=== PATIENT | female | born 1985 | race Caucasian/White ===

== ENCOUNTER 2025-01-10 18:05 | Emergency (ER) | payer SELFPAY ==
[2025-01-10 18:09] VITALS: BP 169/88; PULSE 77; TEMP 37.2; O2SAT 100; BMI 27.4
--- NOTE | 2025-01-10 18:28 | ED.GENADUL1 ---
HPI HPI - General Adult General Chief complaint: Abdominal Pain Stated complaint: ABDOMINAL PAIN Time Seen by Provider: 01/10/25 18:06 Source: patient Mode of arrival: walk-in Limitations: no limitations History of Present Illness HPI narrative: Patient is a 39-year-old female who presents to the emergency department for evaluation of right lower quadrant abdominal pain that has been present for the last 3 weeks. She states she sometimes feels the pain in the right flank and back. She states today the pain has been much more constant and increasing in intensity. She is tearful at initial interview. She has had nausea but no vomiting or diarrhea. No hematuria or dysuria. She has had a previous Essure procedure but no other abdominal surgeries. She denies the symptoms previously. Related Data Home Medications ?Medication ?Instructions ?Recorded ?Confirmed No Known Home Medications 01/10/25 01/10/25 Previous Rx's ?Medication ?Instructions ?Recorded dicyclomine 20 mg tablet 20 mg PO QID PRN abdominal pain 01/10/25 #12 tabs hydrocodone 5 mg-acetaminophen 325 1 tab PO Q6H PRN pain 3 days #12 01/10/25 mg tablet tabs ketorolac 10 mg tablet 10 mg PO TID PRN pain #10 tabs 01/10/25 ondansetron 4 mg disintegrating 4 mg PO Q6H PRN nausea and 01/10/25 tablet vomiting #12 tabs Allergies Allergy/AdvReac Type Severity Reaction Status Date / Time No Known Drug Allergies Allergy Verified 01/10/25 18:09 Opioid HPI Opioid Management Most Recent Opioid Data: Last Pain Scale 5 01/10/25 20:58 01/10/25 Last ED Pain Assessment 01/10/25 20:58 Review of Systems ROS Constitutional Denies: fever or chills Ears, nose, mouth, and throat Denies: throat pain or nasal congestion Respiratory Denies: shortness of breath Gastrointestinal Reports: abdominal pain; Denies: nausea, vomiting or diarrhea Musculoskeletal Reports: back pain; Denies: neck pain Integumentary/Breast Denies: rash Neurological Denies: numbness in extremities or weakness in extremities Hematologic/Lymphatic Denies: easy bruising or easy bleeding PFSH PFSH Social History Little interest or pleasure in doing things: not at all Feeling down, depressed, or hopeless: not at all Exam Narrative Exam Narrative: Gen.: Awake, alert, in no distress Head: Normocephalic, atraumatic ENT: Moist mucous membranes Respiratory: No respiratory distress Gastrointestinal: Abdomen is soft, nondistended and mildly tender to palpation in the right lower quadrant with no guarding or rebound, no CVA tenderness Extremities: Moves extremities equally Psych: Normal mood and affect Neuro: No focal neuro deficit Skin: Warm, dry, intact Constitutional Vital Signs, click to edit/add: Last Vital Signs Temp 99 F 01/10/25 18:09 Pulse 64 01/10/25 20:30 Resp 18 01/10/25 20:30 BP 132/82 01/10/25 20:30 Pulse Ox 99 01/10/25 20:30 O2 Del Method Room Air 01/10/25 20:30 Course Vital Signs Vital signs: Vital Signs Temperature 99 F 01/10/25 18:09 Pulse Rate 77 01/10/25 18:09 Respiratory Rate 20 01/10/25 18:09 Blood Pressure 169/88 H 01/10/25 18:09 Pulse Oximetry 100 01/10/25 18:09 Oxygen Delivery Method Room Air 01/10/25 18:09 Temperature 99 F 01/10/25 18:09 Pulse Rate 64 01/10/25 20:30 Respiratory Rate 18 01/10/25 20:30 Blood Pressure 132/82 01/10/25 20:30 Pulse Oximetry 99 01/10/25 20:30 Oxygen Delivery Method Room Air 01/10/25 20:30 Medical Decision Making [facility] Narrative Medical decision making narrative: Was medicated with pain medication, laboratory studies reviewed and noted showing leukocytosis but no other acute abnormalities noted with normal lactic acid and urine specimen. test is negative. CT of the abdomen and pelvis shows the patient has gallstones but no evidence of cholecystitis, appendix is normal and well-seen. There is no evidence of ureteral stone. Bladder is mildly distended and the patient was noted to have an enlarged uterus with fibroids. Vital signs are within normal limits and she is resting comfortably on reevaluation. She is started on a short course of analgesics, Levsin, Toradol, Zofran. Follow-up with PCP and return to the ER if symptoms change or worsen SUPERVISED APC VISIT, PHYSICIAN ATTESTATION: Based on the medical record the care appears appropriate. ? Medical Records Medical records reviewed: Yes I reviewed the patient's medical records Lab Data Lab results reviewed: Yes I reviewed the patient's lab results Labs: Lab Results 01/10/25 01/10/25 Range/Units 18:21 18:29 WBC 16.0 H (4.0-11.0) 10^3/uL RBC 4.80 (4.20-5.40) 10^6/uL Hgb 14.7 (12.0-16.0) g/dL Hct 42.6 (36.0-48.0) % MCV 88.8 (81.0-99.0) fL MCH 30.6 (26.7-34.0) pg MCHC 34.5 (29.9-35.2) g/dL RDW 12.3 (11.0-15.0) % Plt Count 278 (150-450) 10^3/uL MPV 10.6 (9.5-13.5) fL Neut % (Auto) 73.4 (43.0-75.0) % Lymph % (Auto) 17.7 L (20.5-60.0) % [place] % (Auto) 7.2 (1.7-12.0) % Eos % (Auto) 0.8 L (0.9-7.0) % Baso % (Auto) 0.5 (0.2-2.0) % Neut # (Auto) 11.7 H (1.4-6.5) 10^3/uL Lymph # (Auto) 2.8 (1.2-3.8) 10^3/uL [place] # (Auto) 1.2 H (0.3-0.8) 10^3/uL Eos # (Auto) 0.1 (0.0-0.7) 10^3/uL Baso # (Auto) 0.1 (0.0-0.1) 10^3/uL Abs Immat Gran (auto) 0.06 H (0.00-0.03) 10^3/uL Imm/Tot Granulo (auto) 0.4 (0.0-0.5) % PT 10.6 (9.0-11.6) sec INR 1.00 Sodium 141 (136-145) mmol/L Potassium 3.3 L (3.5-5.1) mmol/L Chloride 105 (98-107) mmol/L Carbon Dioxide 25.6 (21.0-32.0) mmol/L Anion Gap 13.7 BUN 7.0 (7.0-18.0) mg/dL Creatinine 0.72 (0.55-1.02) mg/dL Est GFR ( Amer) >60 (>=60 mL/min/1.73m^2) Est GFR (Non-Af Amer) >60 (>=60 mL/min/1.73m^2) BUN/Creatinine Ratio 9.7 Glucose 102 (74-106) mg/dL Lactate 1.8 (0.4-2.0) mmol/L Calcium 9.2 (8.5-10.1) mg/dL Total Bilirubin 0.7 (0.2-1.0) mg/dL AST 28 (15-37) U/L ALT 37 (14-59) U/L Alkaline Phosphatase 61 (46-116) U/L Total Protein 7.4 (6.4-8.2) g/dL Albumin 3.8 (3.4-5.0) g/dL Globulin 3.6 g/dL Albumin/Globulin Ratio 1.1 Lipase 24.0 (16.0-77.0) U/L Serum HCG, Qual Negative (NEGATIVE) Urine Color Lt. yellow (YELLOW) Urine Clarity Clear (CLEAR) Urine pH 6.0 (5.0-9.0) Ur Specific [place] <=1.005 A (1.005-1.025) Urine Protein Negative (NEG/TRACE) mg/dL Urine Glucose (UA) Negative (NEGATIVE) mg/dL Urine Ketones Negative (NEGATIVE) mg/dL Urine Occult Blood Negative (NEGATIVE) Urine Nitrite Negative (NEGATIVE) Urine Bilirubin Negative (NEGATIVE) Urine Urobilinogen 0.2 (0.2-1.0) EU/dL Ur Leukocyte Esterase Negative (NEGATIVE) Urine RBC None seen (0-2) #/HPF Urine WBC None seen (NONE SEEN) #/HPF Ur Squamous Epith Cells Rare (NONE/RARE) #/LPF Urine Crystals None seen (None Seen) #/HPF Urine Bacteria None seen (NONE SEEN) #/HPF Urine Casts None seen (NONE SEEN) #/LPF Urine Mucus None seen (NONE SEEN) Ur Culture Indicated? No Imaging Data CT scan - abdomen: Attestation: I have reviewed the pertinent imaging results. Discharge Plan Discharge Chief Complaint: Abdominal Pain Clinical Impression: Abdominal pain Patient Disposition: Home, Self-Care Time of Disposition Decision: 21:32 Condition: Good Prescriptions / Home Meds: New hydrocodone-acetaminophen 5-325 mg tablet 1 tab PO Q6H PRN (Reason: pain) 3 Days Qty: 12 0RF Rx Instructions: DX: R10.9 dicyclomine 20 mg tablet 20 mg PO QID PRN (Reason: abdominal pain) Qty: 12 0RF ketorolac 10 mg tablet 10 mg PO TID PRN (Reason: pain) Qty: 10 0RF ondansetron 4 mg tablet,disintegrating 4 mg PO Q6H PRN (Reason: nausea and vomiting) Qty: 12 0RF No Action No Known Home Medications Print Language: Syriac Instructions: Acute Abdominal Pain (ED) Referrals: Physician,Non-Staff, MD [Primary Care Provider] - 1 week
[2025-01-10] MEDS: ONDANSETRON PF 4 MG/2 ML VIAL IV (18:37)
[2025-01-10] MEDS: 0.9 % SODIUM CHLORIDE 1,000 ML 999 ML IV (18:37)
[2025-01-10] MEDS: HYDROMORPHONE HCL 0.5 MG/0.5 ML SYRINGE IV ×2 (18:38→19:48)
[2025-01-10] MEDS: KETOROLAC TROMETHAMINE 30 MG/ML VIAL IVP (18:38)
[2025-01-10 18:48] LABS: Basophils Absolute Auto 0.1 10^3/uL (0.0-0.1); Basophils Percent Auto 0.5 % (0.2-2.0); Eosinophils Absolute Auto 0.1 10^3/uL (0.0-0.7); Eosinophils Percent Auto 0.8 % (0.9-7.0); Hematocrit 42.6 % (36.0-48.0); Hemoglobin 14.7 g/dL (12.0-16.0); Immature Granulocytes Abs Auto 0.06 10^3/uL (0.00-0.03); Immature Granulocytes Pct Auto 0.4 % (0.0-0.5); Lymphocytes Absolute Auto 2.8 10^3/uL (1.2-3.8); Lymphocytes Percent Auto 17.7 % (20.5-60.0); Mean Corpuscular HGB Conc 34.5 g/dL (29.9-35.2); Mean Corpuscular Hemoglobin 30.6 pg (26.7-34.0); Mean Corpuscular Volume 88.8 fL (81.0-99.0); Mean Platelet Volume 10.6 fL (9.5-13.5); Monocytes Absolute Auto 1.2 10^3/uL (0.3-0.8); Monocytes Percent Auto 7.2 % (1.7-12.0); Neutrophils Absolute Auto 11.7 10^3/uL (1.4-6.5); Neutrophils Percent Auto 73.4 % (43.0-75.0); Platelet Count 278 10^3/uL (150-450); Red Cell Distribution Width 12.3 % (11.0-15.0)
[2025-01-10 19:02] LABS: Bilirubin Urine NEGATIVE (NEGATIVE); Blood Urine NEGATIVE (NEGATIVE); Clarity Urine CLEAR (CLEAR); Color Urine LT. YELLOW (YELLOW); Glucose Urine UA NEGATIVE (NEGATIVE); Ketones Urine NEGATIVE (NEGATIVE); Leukocyte Esterase Urine NEGATIVE (NEGATIVE); Nitrite Urine NEGATIVE (NEGATIVE); Protein Urine NEGATIVE (NEG/TRACE); Specific Gravity Urine <=1.005 (1.005-1.025); Urobilinogen Urine 0.2 EU/dL (0.2-1.0)
[2025-01-10 19:06] LABS: Lactate/Lactic Acid 1.8 mmol/L (0.4-2.0)
[2025-01-10 19:08] LABS: Prothrombin Time 10.6 sec (9.0-11.6)
[2025-01-10 19:14] LABS: Bacteria Urine NONE SEEN #/HPF (NONE SEEN); Cast Seen? NONE SEEN #/LPF (NONE SEEN); Crystals Seen? None Seen #/HPF (None Seen); Mucus Urine NONE SEEN (NONE SEEN); RBC Urine NONE SEEN #/HPF (0-2); Squamous Epithelial Cell Urine RARE #/LPF (NONE/RARE); Urine Culture Indicated NO; WBC Urine NONE SEEN #/HPF (NONE SEEN)
[2025-01-10 19:16] LABS: HCG Qualitative NEGATIVE (NEGATIVE); Internal Control Within Normal Limits
[2025-01-10 19:20] LABS: Alanine Aminotransferase 37 U/L (14-59); Albumin Globulin Ratio 1.1; Albumin Level 3.8 g/dL (3.4-5.0); Alkaline Phosphatase 61 U/L (46-116); Anion Gap 13.7; Aspartate Amino Transferase 28 U/L (15-37); BUN Creatinine Ratio 9.7; Bilirubin Total 0.7 mg/dL (0.2-1.0); Calcium 9.2 mg/dL (8.5-10.1); Carbon Dioxide 25.6 mmol/L (21.0-32.0); Chloride 105 mmol/L (98-107); Estimated GFR (African America >60 (>=60 mL/min/1.73m^2); Estimated GFR (Non-African Ame >60 (>=60 mL/min/1.73m^2); Globulin 3.6 g/dL; Glucose 102 mg/dL (74-106); Potassium 3.3 mmol/L (3.5-5.1); Sodium 141 mmol/L (136-145); Total Protein 7.4 g/dL (6.4-8.2)
--- NOTE | 2025-01-10 19:34 | PC.NURSE ---
Remains in radiology.
[2025-01-10 20:30] VITALS: BP 132/82; PULSE 64; O2SAT 99
--- NOTE | 2025-01-10 20:59 | PC.NURSE ---
Pt states pain is lessened after the second dose of Dilaudid. Rates at a 5-6, but states this is tolerable.
== END 2025-01-10 21:48 | disposition home or self-care (01) ==
PROVIDERS: Physician Assistant; Emergency Provider Emergency Medicine
DX: R10.30 Lower abdominal pain, unspecified (principal); K80.20 Calculus of gallbladder without cholecystitis without obstruction; N85.2 Hypertrophy of uterus; D25.9 Leiomyoma of uterus, unspecified
CPT/HCPCS: 36415; 74176; 80053; 81001; 83605; 83690; 84703; 85025; 85610; 96374; 96375; 96376; 99285; J1171; J1885; J2405